=== PATIENT | male | born 1950 | race Caucasian/White ===

== ENCOUNTER 2016-10-20 08:36 | Emergency (ER) | payer OTHER ==
[~2016-10-20] VITALS: Ht 182.9 cm; Wt 113.4 kg
[2016-10-20] MEDS ORDERED: 0.9 % SODIUM CHLORIDE 10 ML DISP.SYRIN. IV PRN (08:45)
--- NOTE | 2016-10-20 08:52 | PHYS DOC ---
Past Medical History Past Medical History: Cancer, Depression, Diabetes-Type II, High Cholesterol, Hypertension Alcohol Use: Occasionally Drug Use: None Adult General Chief Complaint Chief Complaint: DIZZY/LIGHT HEADED HPI HPI Is a pleasant 66-year-old male with history of hypertension, hyperlipidemia, diabetes type 2 and history of depression who presents with sudden onset of dizziness that began yesterday 11 PM last night. Patient was sitting in his chair getting up to go to bed when he fell dizziness and a spinning sensation with elective warm is moving. He denies any tinnitus denies any change in vision denies any problems speaking or with memory issues. Patient went to bed without issue walking in the morning with similar symptoms. From going from a sitting to stay position the symptoms returned. Patient became very diaphoretic and did not become short of breath did not have a headache to any focal neurologic deficits or chest pain. Patient walked into the shower and attempt to clean himself up or changing position within the shower the symptoms returned. Patient actually go to one knee ultrasound the ground because he became so dizzy and disoriented that he was blacked out. Denies any recent URI symptoms he has had a trauma 2 weeks ago when he fell off a ladder about 6 feet onto the ground landing on his left side although he sustained no injury to weeks ago that was the only injury he can remember. He denies any changes in vision at this time. He said the symptoms are worse when he looks to the left. Patient denies any prior history of the same. Patient's sugars have been well- controlled patient is very nauseous but no vomiting. No belly pain has been experienced. Review of Systems Review of Systems Constitutional: Denies fever or chills [] Eyes: Denies change in visual acuity, redness, or eye pain [] HENT: Denies nasal congestion or sore throat [] Respiratory: Denies cough or shortness of breath [] Cardiovascular: No additional information not addressed in HPI [] GI: Denies abdominal pain, has had some nausea without vomiting no diarrhea or bloody stools : Denies dysuria or hematuria [] Musculoskeletal: Denies back pain or joint pain [] Integument: Denies rash or skin lesions [] Neurologic: Denies headache, focal weakness or sensory changes and feels incredibly dizzy Endocrine: Denies polyuria or polydipsia [] Current Medications Current Medications Current Medications Medications (Trade) Dose Ordered Sig/Joyce Start Time Stop Time Status Last Admin Dose Admin Diazepam (Valium) 5 mg 1X ONCE 10/20/16 09:15 10/20/16 09:16 DC 10/20/16 09:25 5 MG Ondansetron HCl (Zofran) 4 mg 1X ONCE 10/20/16 09:15 10/20/16 09:16 DC 10/20/16 09:25 4 MG Sodium Chloride (Normal Saline Flush) 10 ml QSHIFT PRN 10/20/16 08:45 Allergies Allergies Allergies Coded Allergies Type Severity Reaction Last Updated Verified Penicillins Allergy Severe Anaphylaxis 10/20/16 Yes Sulfa (Sulfonamide Antibiotics) Allergy Severe Anaphylaxis 10/20/16 Yes Tetanus Vaccines and Toxoid Allergy Intermediate Unknown 10/20/16 Yes bee venom protein (honey bee) Allergy Intermediate Unknown 10/20/16 Yes Physical Exam Physical Exam vital signs reviewed. Constitutional: Well developed, well nourished, patient opts to not feeling well. Patient nondiaphoretic at this time HENT: Normocephalic, atraumatic, bilateral external ears normal, oropharynx moist, no oral exudates, nose normal. [] Eyes: PERRLA, EOMI, conjunctiva normal, no discharge. he has a significant nystagmus looking to the left. It reproduces symptoms. Neck: Normal range of motion, no tenderness, supple, no stridor no carotid bruits Cardiovascular:Heart rate regular rhythm, no murmur [] Lungs & Thorax: Bilateral breath sounds clear to auscultation [] Abdomen: Bowel sounds normal, soft, no tenderness, no masses, no pulsatile masses. [] Skin: Warm, dry, no erythema, no rash. [] Back: No tenderness, no CVA tenderness. [] Extremities: No tenderness, no cyanosis, no clubbing, ROM intact, no edema. [] Neurologic: Alert and oriented X 3, normal motor function, normal sensory function, no focal deficits noted. [] Psychologic: Affect normal, judgement normal, mood normal. [] Current Patient Data Vital Signs Vital Signs Date Time Temp Pulse Resp B/P (MAP) Pulse Ox O2 Delivery O2 Flow Rate FiO2 10/20/16 08:36 48 18 156/89 (111) 96 Room Air Lab Values Laboratory Tests Test 10/20/16 08:51 8/6/17 11:34 White Blood Count 8.8 x10^3/uL (4.0-11.0) Red Blood Count 4.40 x10^6/uL (4.30-5.70) Hemoglobin 13.9 g/dL (13.0-17.5) Hematocrit 39.6 % (39.0-53.0) Mean Corpuscular Volume 90 fL (79-100) Mean Corpuscular Hemoglobin 32 pg (25-35) Mean Corpuscular Hemoglobin Concent 35 g/dL (31-37) Red Cell Distribution Width 13.4 % (11.5-14.5) Platelet Count 210 x10^3/uL (140-400) Neutrophils (%) (Auto) 75 % (31-73) H Lymphocytes (%) (Auto) 16 % (24-48) L Monocytes (%) (Auto) 5 % (0-9) Eosinophils (%) (Auto) 3 % (0-3) Basophils (%) (Auto) 1 % (0-3) Neutrophils # (Auto) 6.6 x10^3uL (1.8-7.7) Lymphocytes # (Auto) 1.4 x10^3/uL (1.0-4.8) Monocytes # (Auto) 0.4 x10^3/uL (0.0-1.1) Eosinophils # (Auto) 0.2 x10^3/uL (0.0-0.7) Basophils # (Auto) 0.1 x10^3/uL (0.0-0.2) D-Dimer (Abena) 0.47 ug/mlFEU (0.00-0.50) Sodium Level 138 mmol/L (136-145) Potassium Level 4.0 mmol/L (3.5-5.1) Chloride Level 103 mmol/L (98-107) Carbon Dioxide Level 25 mmol/L (21-32) Anion Gap 10 (6-14) Blood Urea Nitrogen 37 mg/dL (8-26) H Creatinine 1.5 mg/dL (0.7-1.3) H Estimated GFR (Cockcroft-Gault) 47.1 Glucose Level 258 mg/dL (70-99) H Calcium Level 8.9 mg/dL (8.5-10.1) Magnesium Level 2.0 mg/dL (1.8-2.4) Total Bilirubin 0.5 mg/dL (0.2-1.0) Direct Bilirubin 0.1 mg/dL (0.0-0.2) Aspartate Amino Transferase (AST) 26 U/L (15-37) Alanine Aminotransferase (ALT) 48 U/L (16-63) Alkaline Phosphatase 83 U/L (46-116) Creatine Kinase 235 U/L (39-308) Creatine Kinase MB (Mass) 3.9 ng/mL (0.0-3.6) H Creatine Kinase MB Relative Index 1.7 % (0-4) Troponin I Quantitative < 0.017 ng/mL (0.000-0.055) NL-Kdh-Z-Type Natriuretic Peptide 84 pg/mL (0-124) Total Protein 7.0 g/dL (6.4-8.2) Albumin 3.9 g/dL (3.4-5.0) Lipase 342 U/L (73-393) Thyroid Stimulating Hormone (TSH) 1.489 uIU/mL (0.358-3.74) Urine Collection Type Unknown Urine Color Yellow Urine Clarity Clear Urine pH 6.0 Urine Specific [place] 1.020 Urine Protein Negative mg/dL (NEG-TRACE) Urine Glucose (UA) >=1000 mg/dL (NEG) Urine Ketones (Stick) Negative mg/dL (NEG) Urine Blood Negative (NEG) Urine Nitrite Negative (NEG) Urine Bilirubin Negative (NEG) Urine Urobilinogen Dipstick 0.2 mg/dL (0.2 mg/dL) Urine Leukocyte Esterase Negative (NEG) Urine RBC 0 /HPF (0-2) Urine WBC 0 /HPF (0-4) Urine Squamous Epithelial Cells Occ /LPF Urine Bacteria 0 /HPF (0-FEW) Laboratory Tests 10/20/16 08:51 Laboratory Tests 10/20/16 08:51 EKG EKG [] EKG timed 8:[address] Jean dosage heart rate of 47 sinus bradycardia with no ST segment T-wave changes consistent with acute coronary ischemia. Patient's urine was 220 which time she is first degree AV block, QRS is normal with at 78, QTC is 314. Radiology/Procedures Radiology/Procedures [] IMAGING REPORT Signed PATIENT: CITLALI HOUSE ACCOUNT: [id number] : 1950 LOCATION: ER AGE: 66 SEX: M EXAM STATUS: PRE ER ORD. PHYSICIAN: ALFIE JEAN MD REASON: syncope PROCEDURE: PORTABLE CHEST 1V Indication syncope. Dizziness. Nausea and vomiting. A single view of the chest was obtained. No prior plain film imaging of the chest is available. The heart and pulmonary vessels appear normal. The right lung is clear. There is some slight volume loss at the left lung base. This may reflect pleural fluid and atelectasis. Pneumonia is felt unlikely. There is no pneumothorax. Visualized bony structures appear grossly intact. IMPRESSION: Suspect small left pleural effusion with some associated minimal atelectasis DICTATED and SIGNED BY: JESSICA ACEVEDO MD DATE: 10/20/16920 CC: ALFIE JEAN MD; NON,STAFF ~ [address] [address] IMAGING REPORT Signed PATIENT: CITLALI HOUSE ACCOUNT: [id number] : 1950 LOCATION: ER AGE: 66 SEX: M EXAM STATUS: PRE ER ORD. PHYSICIAN: ALFIE JEAN MD REASON: dizzy PROCEDURE: CT HEAD WO CONTRAST Indication dizziness. Vomiting. Suspect CVA. Noncontrast images of the head were obtained. No prior imaging of the head is available. The calvarium appears unremarkable and the visualized paranasal sinuses appear normal. There is no subdural or epidural hematoma. Ventricles and sulci are within normal limits. There is no mass or midline shift. No hemorrhage is seen. No acute finding is apparent IMPRESSION: No acute intracranial finding PQRS Compliance Statement: One or more of the following individualized dose reduction techniques were utilized for this examination: 1. Automated exposure control 2. Adjustment of the mA and/or kV according to patient size 3. Use of iterative reconstruction technique DICTATED and SIGNED BY: JESSICA ACEVEDO MD DATE: 10/20/16932 CC: ALFIE JEAN MD; NON,STAFF ~ Course & Med Decision Making Course & Med Decision Making Pertinent Labs and Imaging studies reviewed. (See chart for details) nursing notes, vital signs, history and physical reviewed by me. Presentation patient presents with near syncope. My syncope differential includes but not limited to: Neurally mediated vasovagal syncope, situational syncope, cardiac sinus syncope , orthostatic hypertension, medications, psychiatric interventions, neurologic syncope, cardiogenic syncopal B, to include organic heart disease congestive heart failure, cardiac dysrhythmia, seizure disorder, stroke or transient ischemic attack, bradycardia dysrhythmias, tachycardia dysrhythmias, PT, V. fib V. fib, cardiac abnormalities like first degree secondary third-degree AV blocks , prolonged QT, hypertrophic Christiano myopathy, severe pulmonic stenosis, pulmonary arterial hypertension, atrial myxomas, aortic stenosis, valvular failure, alcohol consumption, adrenal insufficiency, drug effects from things like antidepressants, antihypertensive agents like beta blockers, vasodilators including calcium channel blockers and nitrates, autonomic insufficiency. Concert upon arrival. Patient noted to be very nauseated with head movements with nystagmus to the left provoked by head movements. This is likely secondary to benign positional vertigo. But given the fact he had recent injury within the last 2 weeks although did not hit his head or neck mass observed intracranial mass or lesion bleeding causing his symptoms. Patient is a head CT done as well as appropriate workup ordered by jai camargo to include cardiac workup given his prior medical problems and risk factors. []History: Highly suspicious 2 points moderately suspicious 1. slightly suspicious 0 point EKG: ST segment depression 2. nonspecific repolarization disturbance 1. normal 0 point Age: Greater than 65 2 points, 65-45 1., less than 45 years old 0 points Risk factors:> 3 risk factors 2 points, 1-2 risk factors one point, no risk factors 0 point Troponin: > 2 times normal 2 points, 1-2 times normal 1., normal limits 0 point Total score: Score % pts MACE/n MACE Policy 0-3 32% 1.9% 0.05% Discharge 4-6 51% 413/3136 13% 1.3% Observation Risk management 7-10 17% 518/1045 50% 2.8% Observation Treatment, CAGB Taken into account on arrival. Patient is low risk. Time is now 10:30 AM patient feels markedly better with fluids antiemetics and IV Valium. Given his recent trauma I believe that he is suffering from benign positional vertigo from a trauma. I doubt fistula or internal hemorrhage. CT scan of head. By me and read by radiology as no acute findings. Patient's chest x-ray shows no acute infiltrate only some atelectasis and small pleural effusion. CBC is normal, patient's CMP demonstrates elevated BUN/creatinine which might be contributing to his symptoms given the postural changes he was describing. He is still waiting for urinalysis at this time. Time now 12:01 PM patient feels markedly better would like to go home. Do not believe this is a acute coronary event. Patient urinalysis demonstrates increased glucose which is likely secondary to hyperglycemia and poorly controlled type 2 diabetes. That sugar level may actually increase his dehydration and forced diuresis. I will refer him back to his primary care doctor for evaluation. Impression: Benign positional vertigo, nausea and vomiting, dehydration, renal insufficiency, hyperglycemia secondary to poorly controlled diabetes. Dragon Disclaimer Dragon Disclaimer This electronic medical record was generated, in whole or in part, using a voice recognition dictation system. Departure Departure Impression: Primary Impression: Benign positional vertigo Additional Impressions: Nausea and vomiting Dehydration Renal insufficiency Hyperglycemia Disposition: 01 HOME, SELF-CARE Condition: IMPROVED Referrals: NON,STAFF (PCP) Patient Instructions: Benign Positional Vertigo, Dehydration, Adult, Hyperglycemia, Nausea and Vomiting Additional Instructions: These return for any new or increasing symptoms despite treatment or if you have any question concerns. Please return immediately for any focal neurologic deficits, speaking, change in vision, chest pain with symptoms. Although he had no evidence of heart damage today this is not mean you do not have heart disease I would advise a follow-up with your primary care doctor for referral for vascular evaluation. Please return for any inability to tolerate medications. I would also advise a you talk to primary care doctor about improving the control of his sugars. As the sugars elevations can cause increasing dehydration and worsening symptoms. Scripts Ondansetron (ZOFRAN ODT) 4 Mg Tab.rapdis 4 MG PO BID Y for NAUSEA/VOMITING for 10 Days, #20 TAB Prov: ALFIE JEAN MD 10/20/16 Diazepam (VALIUM) 5 Mg Tablet 5 MG PO TID for MUSCLE SPASMS for 5 Days, #15 TAB Prov: ALFIE JEAN MD 10/20/16 Problem Qualifiers ALFIE JEAN MD Oct 20, 2016 08:52
[2016-10-20 08:58] LABS: BASO # 0.1 x10^3/uL (0.0-0.2); BASO % 1 % (0-3); EOS % 3 % (0-3); HEMATOCRIT 39.6 % (39.0-53.0); HEMOGLOBIN 13.9 g/dL (13.0-17.5); LYMPH # 1.4 x10^3/uL (1.0-4.8); LYMPH % 16 % (24-48); MEAN CORPUSCULAR HEMOGLOBIN 32 pg (25-35); MEAN CORPUSCULAR HGB CONC 35 g/dL (31-37); MEAN CORPUSCULAR VOLUME 90 fL (79-100); MONO % 5 % (0-9); NEUT % 75 % (31-73); PLATELET COUNT 210 x10^3/uL (140-400); RED CELL DISTRIBUTION WIDTH 13.4 % (11.5-14.5); WHITE BLOOD COUNT 8.8 x10^3/uL (4.0-11.0)
[2016-10-20 09:12] LABS: CALCIUM 8.9 mg/dL (8.5-10.1); CREATININE 1.5 mg/dL (0.7-1.3); GFR 47.1
[2016-10-20] MEDS ORDERED: SIMV40TA3 PO (09:13)
[2016-10-20] MEDS ORDERED: LOSA1TAB17 PO (09:13)
[2016-10-20] MEDS ORDERED: AMLO5TAB2 PO (09:13)
[2016-10-20] MEDS ORDERED: BUPR150T6 PO (09:13)
[2016-10-20] MEDS ORDERED: PIOG45TA40 PO (09:13)
[2016-10-20] MEDS ORDERED: MULT-250 PO (09:13)
[2016-10-20] MEDS ORDERED: GLIM4TAB2 PO (09:13)
[2016-10-20] MEDS ORDERED: DICL75TA PO (09:13)
[2016-10-20] MEDS ORDERED: ASPI-630 PO (09:13)
[2016-10-20] MEDS ORDERED: IV NORMAL SALINE 1000ML BAG 1,000 ML IV SCH (09:15)
[2016-10-20] MEDS ORDERED: ONDANSETRON PF 4 MG/2 ML VIAL. IV ONE (09:15)
[2016-10-20 09:18] LABS: ALBUMIN 3.9 g/dL (3.4-5.0); DIRECT BILIRUBIN 0.1 mg/dL (0.0-0.2); TOTAL BILIRUBIN 0.5 mg/dL (0.2-1.0)
--- NOTE | 2016-10-20 09:26 | RAD ---
Indication syncope. Dizziness. Nausea and vomiting. A single view of the chest was obtained. No prior plain film imaging of the chest is available. The heart and pulmonary vessels appear normal. The right lung is clear. There is some slight volume loss at the left lung base. This may reflect pleural fluid and atelectasis. Pneumonia is felt unlikely. There is no pneumothorax. Visualized bony structures appear grossly intact. IMPRESSION: Suspect small left pleural effusion with some associated minimal atelectasis
[2016-10-20 09:32] LABS: CKMB MASS 3.9 ng/mL (0.0-3.6)
--- NOTE | 2016-10-20 09:39 | RAD ---
Indication dizziness. Vomiting. Suspect CVA. Noncontrast images of the head were obtained. No prior imaging of the head is available. The calvarium appears unremarkable and the visualized paranasal sinuses appear normal. There is no subdural or epidural hematoma. Ventricles and sulci are within normal limits. There is no mass or midline shift. No hemorrhage is seen. No acute finding is apparent IMPRESSION: No acute intracranial finding PQRS Compliance Statement: One or more of the following individualized dose reduction techniques were utilized for this examination: 1. Automated exposure control 2. Adjustment of the mA and/or kV according to patient size 3. Use of iterative reconstruction technique
--- NOTE | 2016-10-20 11:24 | EKG ---
[facility] [address] [place] [address] Test Date: 2016-10-20 Test Time: 08:58:53 Pat Name: CITLALI HOUSE Department: Room: Gender: Machine Biller: : 1950 Requested By: ALFIE JEAN Order Number: [id number] Reading MD: David Orosco Measurements Intervals [place] Rate: 47 P: 0 MS: 220 QRS: 26 QRSD: 78 T: 38 QT: 462 QTc: 413 Interpretive Statements SINUS BRADYCARDIA PROLONGED MS INTERVAL QRS(T) CONTOUR ABNORMALITY CONSIDER INFERIOR MYOCARDIAL DAMAGE RI6.01 Unconfirmed report No previous ECG available for comparison Electronically Signed On 10-20-2016 13:26:47 CDT by David Orosco
[2016-10-20 11:45] LABS: BILIRUBIN,URINE NEGATIVE (NEG); GLUCOSE,URINE >=1000 mg/dL (NEG); NITRITE,URINE NEGATIVE (NEG); PROTEIN,URINE NEGATIVE (NEG-TRACE); UROBILINOGEN,URINE 0.2 mg/dL (0.2 mg/dL)
[2016-10-20 11:52] LABS: BACTERIA,URINE 0 /HPF (0-FEW); RBC,URINE 0 /HPF (0-2); SQUAMOUS EPITHELIAL CELL,UR OCC /LPF; WBC,URINE 0 /HPF (0-4)
[2016-10-20] MEDS ORDERED: DIAZ5TAB PO (12:06)
[2016-10-20] MEDS ORDERED: ONDA4TAB10 PO (12:06)
[2016-10-20 12:52] VITALS: BP 163/78
== END 2016-10-20 12:58 | disposition home or self-care (01) ==
LOC: ER 08:36
DX: H81.10 Benign paroxysmal vertigo, unspecified ear (principal); R11.2 Nausea with vomiting, unspecified; E86.0 Dehydration; N28.9 Disorder of kidney and ureter, unspecified; E11.65 Type 2 diabetes mellitus with hyperglycemia; F32.9 Major depressive disorder, single episode, unspecified; E78.00 Pure hypercholesterolemia, unspecified; I10 Essential (primary) hypertension; E78.5 Hyperlipidemia, unspecified; Z88.0 Allergy status to penicillin; Z88.2 Allergy status to sulfonamides; Z88.7 Allergy status to serum and vaccine; Z91.030 Bee allergy status
CPT/HCPCS: 36415; 70450; 71010; 80048; 80076; 81001; 82553; 83690; 83735; 83880; 84443; 84484; 85027; 85379; 93005; 96361; 96374; 96375; 99285; J2405; J3360; J7030

== ENCOUNTER → 2017-03-26 | Outpatient (CLI) | payer OTHER | END | disposition home or self-care (01) | LOC: KCIC 11:33 | DX: M51.36 Other intervertebral disc degeneration, lumbar region (principal); M51.37 Other intervertebral disc degeneration, lumbosacral region; M54.41 Lumbago with sciatica, right side; M43.16 Spondylolisthesis, lumbar region; M54.2 Cervicalgia; W11.XXXA Fall on and from ladder, initial encounter; Y93.89 Activity, other specified; Y92.89 Other specified places as the place of occurrence of the external cause; Y99.8 Other external cause status | CPT/HCPCS: 72040; 72100 ==